=== PATIENT | male | born 1945 | race Two or more races ===

== ENCOUNTER 2024-01-10 06:00 | Day surgery (SDC) | payer OTHER ==
[2024-01-04 12:39] VITALS: BP 170/88
[~2024-01-10] VITALS: Ht 162.6 cm; Wt 68.0 kg
[~2024-01-10 06:00] MED LIST: COZAAR25 MG PO; PEPCID AC10 MG PO; TAMS0.4C PO
[2024-01-10] MEDS ORDERED: POVIDONE-IODINE 118 ML BOTT TOP ONE (06:42)
[2024-01-10] MEDS ORDERED: HEMOSTATIC MATRIX 1 KIT KIT TOP ONE (06:42)
[2024-01-10] MEDS ORDERED: LIDOCAINE HCL 1%/EPINEPHRINE 20ML VIAL IJ ONE (06:42)
[2024-01-10] MEDS ORDERED: BUPIVACAINE HCL/MPF 0.5% 30ML VIAL ONE (06:42)
[2024-01-10] MEDS ORDERED: DIBUCAINE 30 GM TUBE ONE (06:42)
[2024-01-10] MEDS ORDERED: METRONIDAZOLE/SODIUM CHLORIDE 500 MG/100 ML PIGGYBACK IV ONE (06:43)
[2024-01-10] MEDS ORDERED: CEFTRIAXONE SODIUM 2,000 MG VIAL ONE (06:43)
[2024-01-10] MEDS ORDERED: PERCOCET 5-3251 EACH PO (08:04)
[2024-01-10] MEDS ORDERED: RECTICARE30 GM TOP (08:05)
[2024-01-10] MEDS ORDERED: MORPHINE SULFATE 2 MG/ML CARTRIDGE IV ONE (10:30)
[2024-01-10] MEDS ORDERED: MORPHINE SULFATE 4 MG/ML VIAL IV ONE (11:00)
== END 2024-01-10 11:55 | disposition home or self-care (01) ==
LOC: CIR.AMB 06:00
PROVIDERS: ATTEND Surgery
DX: D12.9 Benign neoplasm of anus and anal canal (principal); K62.1 Rectal polyp; I10 Essential (primary) hypertension; E78.5 Hyperlipidemia, unspecified